=== PATIENT | female | born 1970 | race Caucasian/White ===

== ENCOUNTER 2016-03-16 18:56 | Emergency (ER) | payer OTHER ==
[2016-03-16 19:06] VITALS: TEMP 98.6
--- NOTE | 2016-03-16 19:12 | CPEKG ---
Heart Rate: 76 RR Interval: 789 P-R Interval: 152 QRSD Interval: 82 QT Interval: 368 QTC Interval: 414 P [place]: 53 QRS [place]: 65 T Wave [place]: 47 EKG Severity - NORMAL ECG - EKG Impression: SINUS RHYTHM Electronically Signed By: Terrie Ayala 16-Mar-2016 23:08:42
[2016-03-16] MEDS ORDERED: ASPIRIN 81 MG CHEWABLE TAB PO ONE (19:27)
--- NOTE | 2016-03-16 19:31 | UCPHY ---
H & P Time Seen by Provider: 03/16/16 19:17 Patient Type: New HPI/ROS: CHIEF COMPLAINT: chest pain HISTORY OF PRESENT ILLNESS: The patient is a 45-year-old female who presents to the emergency department with left-sided chest pain. Her left-sided chest pain has been intermittent for the past 3 weeks. She does not associated with anything. She exercises regularly and does not have chest pain during exercise. There are no associated symptoms. She denies nausea, vomiting, diaphoresis or shortness of breath. She has had no recent cough or fever. No leg pain or swelling. Patient denies family history of cardiac disease. Her pain comes for anywhere from seconds to 10 minutes. It is not positional. REVIEW OF SYSTEMS: My complete review of systems is negative except as mentioned in the HPI. Past Medical/Surgical History: Includes hypothyroidism Past surgical history: Includes D and C, , bilateral labial plasty Social history: Patient denies smoking. She does not use marijuana. Family history: No cardiac disease. Smoking Status: Never smoked Physical Exam: Vitals noted GENERAL: Well-appearing, in no acute distress, alert. HEENT: Eyes normal to inspection, normal pharynx, no signs of dehydration. NECK: No thyromegaly, no lymphadenopathy, supple. RESPIRATORY: Clear to auscultation bilaterally, no rales, rhonchi or wheezing. CVS: Regular rate and rhythm, no rubs, murmurs, or gallops. ABDOMEN: Soft, nontender, nondistended, no organomegaly. BACK: Normal to inspection, no CVA tenderness. SKIN: Normal color, no rash, warm, dry. No pallor. EXTREMITIES: No pedal edema, no calf tenderness, no Homans sign or cords, no joint swelling. NEURO/PSYCH: Alert and oriented x3, normal mood and affect. Constitutional: Initial Vital Signs Temperature (C) 37.0 C 03/16/16 19:05 Heart Rate 81 03/16/16 19:05 Respiratory Rate 18 03/16/16 19:05 Blood Pressure 131/87 H 03/16/16 19:05 O2 Sat (%) 97 03/16/16 19:05 O2 Delivery Mode Room Air Allergies/Adverse Reactions: No Known Allergies Allergy (Unverified 05/17/10 18:27) Home Medications: Medication Instructions Recorded Levothyroxine [Synthroid] 50 mcg PO DAILY 05/17/10 Obcp 05/17/10 Medical Decision Making - Diagnostics Imaging: Chest x-ray normal. Please refer the dictated report. ED Course/Re-evaluation: At urgent care I discussed possible etiologies with the patient. I answered all her questions. An EKG was performed. Laboratory studies were obtained. EKG shows normal sinus rhythm, normal rate, normal axis, normal intervals. There are no ST or T-wave abnormalities. EKG is normal as interpreted by me. I reviewed the patient's laboratory studies. Her CBC, chemistry and troponin were negative. D-dimer was negative. I discussed the result with the patient. I answered all her questions. I discussed limitations of the workup thus far. She is aware she needs close follow-up with Cardiology or primary care physician to further evaluate her discomfort. She will return to the emergency department with worsening symptoms. She was given warnings prior to leaving. Differential Diagnosis: My differential includes but is not limited to ACS, acute AL, pulmonary embolus , bronchitis, pneumonia, dissection, aneurysm, pericarditis - Data Points Laboratory Results: Laboratory Results 03/16/16 19:30 03/16/16 19:30 03/16/16 19:30 WBC 6.27 10^3/uL (3.80-9.50) RBC 4.71 10^6/uL (4.18-5.33) Hgb 14.2 g/dL (12.6-16.3) Hct 41.8 % (38.0-47.0) MCV 88.7 fL (81.5-99.8) MCH 30.1 pg (27.9-34.1) MCHC 34.0 g/dL (32.4-36.7) RDW 12.2 % (11.5-15.2) Plt Count 260 10^3/uL (150-400) MPV 10.6 fL (8.7-11.7) Neut % (Auto) 58.6 % (39.3-74.2) Lymph % (Auto) 31.3 % (15.0-45.0) [place] % (Auto) 7.7 % (4.5-13.0) Eos % (Auto) 1.6 % (0.6-7.6) Baso % (Auto) 0.5 % (0.3-1.7) Nucleat RBC Rel Count 0.0 % (0.0-0.2) Absolute Neuts (auto) 3.68 10^3/uL (1.70-6.50) Absolute Lymphs (auto) 1.96 10^3/uL (1.00-3.00) Absolute Monos (auto) 0.48 10^3/uL (0.30-0.80) Absolute Eos (auto) 0.10 10^3/uL (0.03-0.40) Absolute Basos (auto) 0.03 10^3/uL (0.02-0.10) Absolute Nucleated RBC 0.00 10^3/uL (0-0.01) Immature Gran % 0.3 % (0.0-1.1) Immature Gran # 0.02 10^3/uL (0.00-0.10) D-Dimer 0.34 ug/mLFEU (0.00-0.50) Sodium 140 mEq/L (134-144) Potassium 4.0 mEq/L (3.5-5.2) Chloride 107 mEq/L (97-110) Carbon Dioxide 24 mEq/l (22-31) Anion Gap 9 mEq/L (8-16) BUN 12 mg/dL (7-23) Creatinine 0.8 mg/dL (0.6-1.0) Estimated GFR > 60 Glucose 105 H mg/dL (70-100) Calcium 9.1 mg/dL (8.5-10.4) Troponin I < 0.012 ng/mL (0-0.034) Beta HCG, Qual NEGATIVE Departure - Departure Disposition: Home, Routine, Self-Care Clinical Impression: Chest pain Qualifiers: Chest pain type: unspecified Qualifier Code: (R07.9) Chest pain, unspecified Condition: Good Instructions: Chest Pain (ED) Additional Instructions: Return with increasing chest pain, shortness of breath, leg pain, leg swelling, or any other concerns. You need further workup by your primary care physician or Cardiology. Referrals: Sánchez Riggs MD [Primary Care Provider] - 3-4 days, if not improved - PQRS PQRS Measurement: NA
[2016-03-16 19:39] LABS: % IMMATURE GRANULYOCYTES 0.3 % (0.0-1.1); ABSOLUTE IMMATURE GRANULOCYTES 0.02 10^3/uL (0.00-0.10); ADD DIFF? NO; ADD MORPH? NO; ADD SCAN? NO; ATYPICAL LYMPHOCYTE FLAG 10 (0-99); FRAGMENT RBC FLAG 0 (0-99); HEMATOCRIT 41.8 % (38.0-47.0); HEMOGLOBIN 14.2 g/dL (12.6-16.3); LEFT SHIFT FLG 0 (0-99); LIPEMIA HEMOLYSIS FLAG 90 (0-99); MEAN CELL HEMOGLOBIN 30.1 pg (27.9-34.1); MEAN CELL VOLUME 88.7 fL (81.5-99.8); MEAN PLATELET VOLUME 10.6 fL (8.7-11.7); PLATELET CLUMPS FLAG 10 (0-99); PLATELET COUNT 260 10^3/uL (150-400); RED BLOOD CELL COUNT 4.71 10^6/uL (4.18-5.33); RED CELL DISTRIBUTION WIDTH 12.2 % (11.5-15.2)
--- NOTE | 2016-03-16 19:42 | DX ---
Chest, PA and Lateral History: Chest pain and tightness Comparison: None Findings: Lungs are clear, without infiltrate or consolidation. Heart size is normal. There is no gene nopathy or mass lesion. There is no pleural effusion or pneumothorax. Bones are unremarkable for age. Impression: Normal.
[2016-03-16 19:55] LABS: ANION GAP 9 mEq/L (8-16); CALCIUM 9.1 mg/dL (8.5-10.4); CARBON DIOXIDE 24 mEq/l (22-31); CHLORIDE 107 mEq/L (97-110); CREATININE 0.8 mg/dL (0.6-1.0); GLOMERULAR FILTRATION RATE > 60; GLUCOSE 105 mg/dL (70-100); SODIUM 140 mEq/L (134-144)
[2016-03-16 20:02] LABS: TROPONIN I < 0.012 ng/mL (0-0.034)
[2016-03-16 20:25] VITALS: BP 113/85; PULSE 70; RESP 16; O2SAT 95
== END 2016-03-16 20:23 | disposition home or self-care (01) ==
LOC: CED 18:56
DX: R07.9 Chest pain, unspecified (principal)
CPT/HCPCS: 71020-PO; 80048-PO; 84484-PO; 84703-PO; 85025-PO; 85378-PO; 93010-PO; 99205-PO; G0463-PO

== ENCOUNTER → 2016-10-05 | Outpatient (CLI) | payer OTHER | LOC: FIMAGING 15:48 | PROVIDERS: ATTEND Obstetrics & Gynecology | DX: Z12.31 Encounter for screening mammogram for malignant neoplasm of breast (principal) | CPT/HCPCS: G0202 ==

== ENCOUNTER → 2017-12-24 | Outpatient (CLI) | payer OTHER | LOC: FIMAGING 09:21 | PROVIDERS: ATTEND Obstetrics & Gynecology | DX: Z12.31 Encounter for screening mammogram for malignant neoplasm of breast (principal) ==